=== PATIENT | female | born 1945 | race Caucasian/White ===

== ENCOUNTER 2019-04-25 10:51 | Day surgery (SDC) | payer MEDICARE ==
[2019-04-22 09:23] VITALS: BMI 27.3
[~2019-04-25 10:51] MED LIST: HYDROmorphone 0.5 MG/0.5 ML SYRINGE IVP PRN; LACTATED RINGERS 1,000 ML IV SCH; ONDANSETRON 4 MG/2 ML VIAL IVP PRN
[2019-04-25 11:41] VITALS: RESP 16; TEMP 98.3
[2019-04-25] MEDS ORDERED: PROPOFOL 10 MG/ML 20 ML VIAL IV ONE (11:57)
[2019-04-25] MEDS ORDERED: LIDOCAINE 1% INJ 10MG/ML (20 ML MDV) ONE (11:57)
--- NOTE | 2019-04-25 12:16 | P.PCN ---
Date of Procedure: 04/25/19 Procedure(s) Performed: BRIEF HISTORY: Patient is a 73-year-old pleasant white female scheduled for an elective colonoscopy as a part of evaluation of positive cologuard. PROCEDURE PERFORMED: Colonoscopy. PREOPERATIVE DIAGNOSIS: Positive cologuard. IV sedation per Anesthesia. PROCEDURE: After informed consent was obtained, the patient, was brought into the endoscopy unit. IV sedation was administered by Anesthesia under continuous monitoring. Digital rectal examination was normal. Initially the Olympus CF-160 flexible video colonoscope was then inserted in the rectum, gradually advanced into the cecum without any difficulty. Careful examination was performed as the scope was gradually being withdrawn. Ileocecal valve and the appendiceal orifice were visualized and appeared normal. Prep was excellent. Mucosa of the cecum, ascending colon, transverse colon, descending colon, sigmoid colon, and rectum appeared normal. Scattered sigmoidal diverticulosis seen. Retroflexion was performed in the rectum and no lesions were seen. The patient tolerated the procedure well. IMPRESSION: Normal-appearing colon from rectum to cecum with no evidence of colorectal neoplasia. Scattered sigmoid diverticulosis. RECOMMENDATIONS: Findings of this examination were discussed with the patient as well as a family. She was advised to have a repeat screening colonoscopy in 10 years..
[2019-04-25 12:39] VITALS: BP 132/63; PULSE 63
== END 2019-04-25 13:01 | disposition home or self-care (01) ==
LOC: ORWHC2ENDO 10:51
PROVIDERS: ATTEND Internal Medicine Gastroenterology
DX: K57.30 Diverticulosis of large intestine without perforation or abscess without bleeding (principal); R19.5 Other fecal abnormalities; I10 Essential (primary) hypertension; M41.9 Scoliosis, unspecified; Z79.899 Other long term (current) drug therapy; Z79.82 Long term (current) use of aspirin; Z96.5 Presence of tooth-root and mandibular implants
CPT/HCPCS: 45378; J2001; J2704

== ENCOUNTER → 2020-03-23 | Outpatient (CLI) | payer MEDICARE ==
[2020-03-24 04:55] LABS: Hepatitis A Antibody IgM Non-Reactive (Non-Reactive); Hepatitis B Surface AB- Quant 3.5 mIU/mL; Hepatitis B Surface Antibody Non-Reactive (Non-Reactive); Hepatitis C IgG Antibody Non-Reactive (Non-Reactive)
== END | disposition home or self-care (01) ==
LOC: LABWHC1 15:32
PROVIDERS: ATTEND Internal Medicine
DX: Z11.59 Encounter for screening for other viral diseases (principal)
CPT/HCPCS: 36415; 86704; 86706; 86709; 86803

== ENCOUNTER → 2020-03-23 | Outpatient (CLI) | payer MEDICARE ==
--- NOTE | 2020-03-23 10:54 | US ---
EXAMINATION TYPE: US abdomen complete DATE OF EXAM: 03/23/2020 COMPARISON: NONE CLINICAL HISTORY: R18.8 ASCITES. bloating, very difficult and limited exam due to overlying bowel gas EXAM MEASUREMENTS: Liver Length: 13.3 cm Gallbladder Wall: 0.2 cm CBD: 0.5 cm Spleen: 8.7 cm Right Kidney: 9.3 x 5.4 x 4.5 cm Left Kidney: 9.1 x 5.5 x 4.0 cm Pancreas: Obscured by bowel gas Liver: Heterogeneous echotexture Gallbladder: wnl Evidence for sonographic Pal's sign: No CBD: wnl as visualized, limited evaluation Spleen: wnl Right Kidney: No hydronephrosis or masses seen Left Kidney: No hydronephrosis. Cystic area visualized measuring 1.9 x 1.4 x 1.4 cm . 5 mm hyperec hoic calcification. Upper IVC: wnl Abd Aorta: wnl No ascites visualized The liver is heterogeneous. The intrahepatic portion of the IVC and proximal abdominal aorta are wit hin normal limits. There is no evidence of cholelithiasis. Common bile duct is unremarkable. The s pleen is unremarkable. Kidneys are symmetric and free of hydronephrosis. IMPRESSION: 1. 1.9 cm left renal cyst. 2. nonspecific pattern to the liver correlate for hepatitis, diffuse hepatocellular disease or hepati c steatosis. 3. Nonobstructing 5 mm left renal calculus.
== END | disposition home or self-care (01) ==
LOC: RADUSWWP 10:04
PROVIDERS: ATTEND Internal Medicine
DX: N28.1 Cyst of kidney, acquired (principal); N20.0 Calculus of kidney
CPT/HCPCS: 76700

== ENCOUNTER → 2020-03-26 | Outpatient (CLI) | payer MEDICARE | END | disposition home or self-care (01) | LOC: LABWHC1 12:55 | PROVIDERS: ATTEND Internal Medicine | DX: Z03.818 Encounter for observation for suspected exposure to other biological agents ruled out (principal); R50.9 Fever, unspecified; R09.89 Other specified symptoms and signs involving the circulatory and respiratory systems | CPT/HCPCS: U0003; C9803 ==

== ENCOUNTER 2022-12-28 06:14 | Day surgery (SDC) | payer MEDICARE ==
[2022-12-22 15:32] VITALS: BMI 27.3
[~2022-12-28 06:14] MED LIST changes: +DEXAMETHASONE SOD PHOSPHATE 4 MG/ML 1 ML VIAL IV ONE; -HYDROmorphone 0.5 MG/0.5 ML SYRINGE IVP PRN; +LIDOCAINE 1% (10MG/ML) FOR IV START INTRADERMA PRN; +MOXIFLOXACIN HCL 0.5% DROPS 3 ML BTL OP PRN; +ONDANSETRON 4 MG/2 ML VIAL IVP ONE; -ONDANSETRON 4 MG/2 ML VIAL IVP PRN; +TETRACAINE 0.5% OPHTH (PF) DROPS 4 ML BTL OP PRN; +TIMOLOL 0.5% OPHTH DROPS 5 ML BTL OP PRN
[2022-12-28] MEDS: CYCLOPENTOLATE 1% OPHTH SOLN 2 ML BTL OP PRN ×3 (06:52→07:05)
[2022-12-28 06:55] VITALS: TEMP 97.8
[2022-12-28] MEDS: PHENYLEPHRINE 2.5% OPHTH DRP 2ML OP PRN ×3 (06:55→07:08)
[2022-12-28] MEDS ORDERED: MIDAZOLAM 2 MG/2 ML VIAL ONE (07:27)
[2022-12-28] MEDS ORDERED: EPINEPHrine (PF) 0.3 ML in BALANCED SALT IRRIG SOLN COMB2 500 ML IRRIGATION ONE (07:41)
[2022-12-28] MEDS ORDERED: HYALURONATE SODIUM INTRAOCULAR 1 EACH SYRINGE (12MG/ML) INTRAOCULA ONE (07:44)
[2022-12-28] MEDS ORDERED: BALANCED SALT IRRIG SOLN COMB2 15 ML IRRIG.SOLN INTRAOCULA ONE (07:44)
[2022-12-28] MEDS ORDERED: LIDOCAINE 1% (PF) 10MG/ML VIAL MISCELLANE ONE (07:44)
--- NOTE | 2022-12-28 08:02 | P.OP ---
Date of Procedure: 12/28/22 Preoperative Diagnosis: NS & cS & PSC Postoperative Diagnosis: same Procedure(s) Performed: PIOL,, OS Implants: MX60E 19.50 Anesthesia: MAC Surgeon: Austyn Ortiz Pathology: none sent Condition: stable Disposition: same day Indications for Procedure: blurry vision Operative Findings: no complications
[2022-12-28 08:16] VITALS: RESP 16
[2022-12-28 08:23] VITALS: BP 118/50; PULSE 54
--- NOTE | 2022-12-29 02:15 | OP ---
OPERATIVE REPORT DATE OF SERVICE : 12/28/2022 PREOPERATIVE DIAGNOSES: Nuclear sclerosis, cortical sclerosis, posterior subcapsular cataract. POSTOPERATIVE DIAGNOSIS: Nuclear sclerosis, cortical sclerosis, posterior subcapsular cataract. OPERATION: Phacoemulsification of cataract and intraocular lens implant of the left eye. ESTIMATED BLOOD LOSS: Zero. SPECIMEN TAKEN: None. NARRATIVE: After obtaining the appropriate consent, the patient was brought to the operating room where the patient was placed under cardiac monitoring and prepped and draped in the usual sterile manner. At the 5 o'clock position, a 15-degree super sharp blade was used to create a paracentesis followed by instillation of 1% Xylocaine MPF 50:50 mix with BSS into the anterior chamber. This was followed by Amvisc viscoelastic to stabilize the anterior chamber. At the 3 o'clock position a self-sealing corneal flap incision was created using 2.8 mm millicent keratome. A cystotome was used to initiate a continuous tear capsulorrhexis which was completed with the Utrata forceps. A Binkhorst cannula was used to hydrodissect the lens nucleus followed by hydrodelineation. Phacoemulsification of the lens was performed utilizing phacochop in 17.98 seconds at 14% power. The remaining cortical material was removed using the irrigation aspiration mode followed by additional 1% Xylocaine MPF into the anterior chamber followed by viscoelastic to stabilize the capsular bag. A [employer] MX60E 19.5 diopters posterior chamber lens was placed into the capsular bag without difficulty. The remaining viscoelastic material was removed from the anterior chamber with the irrigation/aspiration. Balanced salt solution was used to normalize the intraocular pressure. The incision was checked for watertight integrity. The patient then received 2 drops of 0.5% timolol followed by 2 drops Vigamox, was lightly patched and shielded in the usual manner. There were no complications from the procedure. The patient tolerated the procedure well and was returned to recovery in good condition. MMODL / IJN: [id number] /
--- NOTE | 2022-12-29 07:38 | OP ---
OPERATIVE REPORT DATE OF SERVICE : 12/28/2022 PREOPERATIVE DIAGNOSES: Nuclear sclerosis, cortical sclerosis, posterior subcapsular cataract. POSTOPERATIVE DIAGNOSES: Nuclear sclerosis, cortical sclerosis, posterior subcapsular cataract. OPERATION: Phacoemulsification of cataract and intraocular lens implant, left eye. ANESTHESIA: Topical. ESTIMATED BLOOD LOSS: None. SPECIMEN TAKEN: None. NARRATIVE: After obtaining the appropriate consent, the patient was brought to the operating room where she was placed under cardiac monitoring and prepped and draped in the usual sterile manner. She was approached from her left temporal side and using previously acquired corneal topography information, the axis of DICTATION ENDS HERE MMODL / IJN: [id number] /
== END 2022-12-28 08:48 | disposition home or self-care (01) ==
LOC: OR 06:14
PROVIDERS: ATTEND Ophthalmology
DX: H25.12 Age-related nuclear cataract, left eye (principal); H25.012 Cortical age-related cataract, left eye; H25.042 Posterior subcapsular polar age-related cataract, left eye; I10 Essential (primary) hypertension; E78.5 Hyperlipidemia, unspecified; E03.9 Hypothyroidism, unspecified; F41.9 Anxiety disorder, unspecified; K21.9 Gastro-esophageal reflux disease without esophagitis; F10.20 Alcohol dependence, uncomplicated; Z79.1 Long term (current) use of non-steroidal anti-inflammatories (NSAID); Z79.2 Long term (current) use of antibiotics; Z79.82 Long term (current) use of aspirin; Z79.890 Hormone replacement therapy; Z79.899 Other long term (current) drug therapy
CPT/HCPCS: 66984; C1780; J2250; J1100; J2405; J0171; J2001

== ENCOUNTER → 2024-01-03 | Outpatient (CLI) | payer MEDICARE ==
--- NOTE | 2024-01-03 10:52 | CT ---
EXAMINATION TYPE: CT sinus wo con CT DLP: 593.6 mGycm, Automated exposure control for dose reduction was used. DATE OF EXAM: 01/03/2024 9:10 AM COMPARISON: None. CLINICAL INDICATION:Female, 78 years old with history of J32.9 CHRONIC SINUSITIS, UNSPECIFIED; PHH, C hronic sinusitis and right maxillary pain. CONTRAST: None. TECHNIQUE: Multiple thin axial images were obtained through the paranasal sinuses without the use of IV contrast. Additional coronal and sagittal reformatted images were submitted for evaluation. FINDINGS: Frontal sinuses: Normally developed and aerated. Frontal Recess: Clear Maxillary Sinuses: Normally developed and aerated. Maxillary Infundibula(OM[facility]): Clear, No Chance cells identified. Ethmoid sinuses: Normally developed and aerated. Ethmoidal notch: Protected and abutting the lateral lamina. Sphenoid sinuses: Normally developed and aerated. There is sellar sphenoid sinus pneumatization witho ut evidence of dehiscence. No dehiscence of carotid canal. No evidence of optic nerve dehiscence wit hin the sphenoid sinus. Sphenoethmoidal recesses: Clear. Nasal septum: Within normal limits.. Nasal Turbinates: Within normal limits. Mastoid air cells & middle ears: The air cells are clear. The middle ears are grossly unremarkable. Modified Soft tissues & Brain: Partially seen without gross abnormality. Globes are intact. Other: Cribriform plate demonstrates symmetric Keros classification type 2 cribriform plate. No evidence of bony dehiscence of skull base. Lamina papyracea is intact without evidence of remote orbital fracture or orbital prolapse into the e thmoid sinus. IMPRESSION: 1. No significant mucosal sinus disease. 2. The ostiomeatal units, frontonasal and sphenoethmoidal recesses are clear.
== END | disposition home or self-care (01) ==
LOC: RADCTMAIN 08:46
PROVIDERS: ATTEND Otolaryngology
DX: J32.9 Chronic sinusitis, unspecified (principal)
CPT/HCPCS: 70486

== ENCOUNTER → 2024-08-28 | Outpatient (CLI) | payer MEDICARE ==
--- NOTE | 2024-08-28 16:07 | CA ---
Transthoracic Echo Report Name: Ashleigh Key Age: 79 Gender: F : 1945 Exam Date: 08/28/2024 11:34 Exam Location: [facility] Ht (in): 67 Wt (lb): 177 Ordering Physician: Jv Weavre MD Attending/Referring Phys: Jv Weaver MD Logistics And Planning Manager Yuliana Dominguez RDCS Procedure CPT: Indications: I25.10 CAD Cardiac Hx: Technical Quality: Fair Contrast 1: Total Dose (mL): Contrast 2: Total Dose (mL): MEASUREMENTS (Male / Female) Normal Values 2D ECHO LV Diastolic Diameter PLAX 5.1 cm 4.2 - 5.9 / 3.9 - 5.3 cm LV Systolic Diameter PLAX 4.2 cm IVS Diastolic Thickness 1.2 cm 0.6 - 1.0 / 0.6 - 0.9 cm LVPW Diastolic Thickness 1.0 cm 0.6 - 1.0 / 0.6 - 0.9 cm LV Relative Wall Thickness 0.4 RV Internal Dim ED PLAX 3.3 cm LA Systolic Diameter LX 3.9 cm 3.0 - 4.0 / 2.7 - 3.8 cm LV Diastolic Volume MOD 4C 102.7 cm??? LV Systolic Volume MOD 4C 47.9 cm??? LV Ejection Fraction MOD 4C 53.3 % LV Cardiac Index MOD 4C 1614.7 cm???/min???m??? LV Diastolic Length 4C 8.4 cm LV Systolic Length 4C 6.8 cm LV Diastolic Volume MOD 2C 73.8 cm??? LV Systolic Volume MOD 2C 35.7 cm??? LV Ejection Fraction MOD 2C 51.6 % LV Cardiac Index MOD 2C 1124.7 cm???/min???m??? LV Diastolic Length 2C 7.9 cm LV Systolic Length 2C 6.4 cm LA Volume 45.9 cm??? 18 - 58 / 22 - 52 cm??? LA Volume Index 23.4 cm???/m??? 16 - 28 cm???/m??? M-MODE Aortic Root Diameter MM 3.0 cm DOPPLER AV Peak Velocity 122.0 cm/s AV Peak Gradient 6.0 mmHg AI Peak Velocity 398.9 cm/s AI Peak Gradient 63.6 mmHg AI Pressure Half Time 907.2 ms MV Area PHT 1.6 cm??? Mitral E Point Velocity 49.7 cm/s Mitral A Point Velocity 68.6 cm/s Mitral E to A Ratio 0.7 MV Deceleration Time 466.9 ms FINDINGS Left Ventricle Left ventricular ejection fraction is estimated at 50 to 55 %. Left ventricular systolic function low normal.Mildly increased left ventricular wall thickness. Left ventricular cavity size normal. Right Ventricle Normal right ventricular size and function. . Unable to estimate the right ventricular systolic pressure. Right Atrium Normal right atrial size. No right atrial thrombus or mass seen. Left Atrium Normal left atrial size. No left atrial thrombus or mass present. Mitral Valve Mitral valve thickened. Mitral annular calcification. Mild to moderate mitral regurgitation. Aortic Valve Trileaflet aortic valve. Aortic valve sclerosis. Mild aortic regurgitation. Tricuspid Valve Structurally normal tricuspid valve. No tricuspid stenosis, regurgitation or prolapse. Pulmonic Valve Pulmonic valve not well visualized. Pericardium No pericardial effusion. Aorta Normal size aortic root and proximal ascending aorta. CONCLUSIONS 1. Left ventricular systolic function low normal 2. Mild to moderate mitral and mild aortic regurgitation Previewed by: Dr. Heena Garcia MD (Electronically Signed) Final Date: 28 August 2024 16:06
== END | disposition home or self-care (01) ==
LOC: RADECHMAIN 11:25
PROVIDERS: ATTEND Internal Medicine
DX: I25.10 Atherosclerotic heart disease of native coronary artery without angina pectoris (principal); I65.23 Occlusion and stenosis of bilateral carotid arteries; M65.852 Other synovitis and tenosynovitis, left thigh; I35.1 Nonrheumatic aortic (valve) insufficiency
CPT/HCPCS: 93306

== ENCOUNTER → 2024-12-09 | Outpatient (CLI) | payer MEDICARE ==
--- NOTE | 2024-12-09 22:10 | XR ---
EXAMINATION TYPE: XR knee complete LT DATE OF EXAM: 12/09/2024 5:31 PM COMPARISON: None. CLINICAL INDICATION: Female, 79 years old with history of M25.562 PAIN JOINT KNEE LEFT, pain TECHNIQUE: 3 view(s) obtained. FINDINGS: No acute fracture or dislocation evident. Minimal spurring is present in the lateral tibial plateau f emoral condyle. Mild spurring is from the medial femoral condyle. No joint effusion is evident. Vaughan lofemoral joint space appears preserved. Follow up exams can be performed as clinically indicated MRI can be performed as soft tissue evaluati on be of benefit. IMPRESSION: 1. No acute osseous abnormality left knee. [facility], , 12/09/2024 10:08 PM
== END | disposition home or self-care (01) ==
LOC: RADXRMAIN 16:37
PROVIDERS: ATTEND Internal Medicine
DX: M25.562 Pain in left knee (principal)